=== PATIENT | male | born 1985 | race Hispanic/Latino ===

== ENCOUNTER 2016-08-12 11:09 | Emergency (ER) | payer SELFPAY ==
[~2016-08-12] VITALS: Ht 167.6 cm; Wt 88.2 kg
[~2016-08-12 11:09] MED LIST: NOMED
[2016-08-12 11:20] VITALS: BP 147/96; PULSE 90; RESP 16; O2SAT 98
[2016-08-12] MEDS ORDERED: TdaP Vaccine 0.5 mL Inj IM ONE (12:50)
--- NOTE | 2016-08-12 12:57 | ED.REPORT ---
HPI-General Illness Date of Service Aug 12, 2016 ED Provider: Sergey Cullen PA-C Serg is an otherwise healthy 31-year-old male who presents with a chief complaint of a head laceration. He states he struck his head on the underside of a car that he was working on last night. Admits as steady 5/10 headache. Denies loss of consciousness, vomiting, seizure, use of blood thinners. He thinks he had a tetanus booster approximately 4 years ago but he is somewhat unsure. Denies diabetes, HIV, immunosuppression, bleeding/clotting disorders. Nursing Notes Stated Complaint: HEAD INJURY Chief Complaint: Laceration Nursing Notes Reviewed: Yes Allergies: Coded Allergies: No Known Allergies (Unverified , 08/12/16) General Time Seen by MD: 12:33 Chief Complaint Laceration Past Medical History Past Medical History Denies Review of Systems Negative unless stated otherwise in history of present illness Physical Exam General: Well appearing, well developed, well nourished, no acute distress. Head: Atraumatic, normocephalic. Eyes: No scleral icterus or injection. No discharge. Vision grossly intact. ENT: Voice clear, hearing grossly intact. Respiratory: No respiratory distress, no increased work of breathing. Speaks in complete sentences. Skin: Warm and dry. Neurological: Grossly nonfocal. Psychological: alert and oriented. Speech appropriate, linear and logical. Behavior appropriate. Vital Signs Vital Signs Date Time Temp Pulse Resp B/P Pulse Ox O2 Delivery O2 Flow Rate FiO2 08/12/16 13:33 36.6 79 155/97 97 Room Air 08/12/16 11:20 36.9 90 16 147/96 98 Room Air Initial VS: Vital signs abnormal (elevated blood pressure) Procedures Laceration Management Procedure Performed by: Allied health pract Consent / Setup / Site Prep: Informed consent provided, Consent from patient , Time-out performed, Hand hygiene observed Location of Wound: Superior scalp Wound Length: 1 cm Local Anesthesia: Lidocaine 1%, 3cc, 27g needle Wound Preparation: Normal saline Debridement: None Irrigation: 150 cc Foreign Body Explore / Removal: Explored for foreign body Repair Skin: Anza # Sutures - Skin: 2 Closure Layers: 1 Post-Procedure / Complications: Antibiotic oint applied, Dressing applied, No complications, Condition improved, Tolerated procedure well, Patient stable Re-Eval/Medical Decision Med Decision/Clinical Course Otherwise healthy 31-year-old male with a laceration on the superior scalp from a relatively trivial blow to the head. Little concern for intracranial injury. Unsure of tetanus status. Physical examination reveals a 1 cm laceration near the crown of the scalp. Irrigated with normal saline and closed with 2 yaquelin. Dressed with antibiotic ointment and gauze. Advised staple removal in 10 days. Tetanus shot provided. I see no indication for antibiotics at this time. Provided wound care instructions, primary care follow-up referral, emergency return cautions. Patient understands and agrees with the plan. Examination and discharged performed with the aid of language line solutions. Discharge & Departure Primary Impression: Laceration Additional Impression: Elevated blood pressure reading Disposition: Home Discharge Condition All VS Reviewed: Yes Condition: Stable Patient Instructions: Laceration (ED), Suture Care (ED), Wound Infection (ED) Additional Instructions: Evaluation in the emergency department for a laceration. This appears to be a clean wound. I see no indication for antibiotics at this time. We have provided you with a tetanus shot We have cleaned, stapled and dressed the wound with antibiotic ointment and gauze. Please leave this dressing on and dry for the next 24 hours. After that you can remove the dressing, clean with soap and water and then reapply antibiotic ointment and gauze or Band-Aid. Please do not submerge the wound as in washing dishes, swimming or soaking in a tub until you have the sutures removed. The pain is best treated with 400 mg of ibuprofen (Advil, Motrin) every 6 hours , or 1000 mg of acetaminophen (Tylenol) every 6 hours. These drugs can be taken at the same time for more severe pain. Be vigilant for signs of infection. While a small amount of redness, tenderness and clear or pink drainage is normal, any increasing pain, redness, swelling or the appearance of pus suggests infection. More severe infection as suggested by symptoms such as fever, chills, feeling ill, racing heart. Please return to emergency Department if you notice signs of infection. I have provided referral for primary care provider Follow-up with your primary care provider or return to the emergency department in 10 days for staple removal. Referrals: [facility] EDSupervising Provider for APC: Leon Walter DO copies to: [facility] Sergey Cullen PA-C Aug 12, 2016 12:57
[2016-08-12 13:33] VITALS: BP 155/97; PULSE 79; O2SAT 97
== END 2016-08-12 13:34 | disposition home or self-care (01) ==
LOC: MERGE 11:09 → SED 11:09
DX: S01.01XA Laceration without foreign body of scalp, initial encounter (principal); W22.8XXA Striking against or struck by other objects, initial encounter; Y92.9 Unspecified place or not applicable; Y93.89 Activity, other specified; Y99.8 Other external cause status; R03.0 Elevated blood-pressure reading, without diagnosis of hypertension; Z23 Encounter for immunization